=== PATIENT | female | born 1960 | race Caucasian/White ===

== ENCOUNTER 2017-02-18 14:14 | Inpatient (IN) | payer MEDICAID ==
[~2017-02-18] VITALS: Ht 177.8 cm; Wt 86.6 kg
[2017-02-18] VITALS (8 sets, daily range): BP systolic 142–205; BP diastolic 86–131; BMI 28.9
[~2017-02-18 14:14] MED LIST: ATIVAN1 MG PO; CARAFATE1 G/10 ML PO; DEPAKOTE500 MG PO; EFFEXOR75 MG PO; FLAGYL500 MG PO; KEFLEX500 MG PO; LISINOPRIL10 MG PO; NEURONTIN 300300 MG; NEXIUM20 MG PO; NEXIUM40 MG; NORCO 10/325 TA1 TA1 PO; PEPCID40 MG PO; PROTONIX40 MG PO; VENTOLIN HFA18 GM INH; ZANTAC300 MG PO
[2017-02-18 15:41] LABS: BASOPHILS 0.2 % (0-2); HEMATOCRIT 25.5 % (36.0-48.0); IMMATURE GRANULOCYTES 0.1 % (0-5); LYMPHOCYTES 9.8 % (15-50); MCHC 27.8 g/dL (31.0-37.0); MCV 69.7 fL (80.0-100.0); MEAN PLATELET VOLUME 9.3 fL (7.4-10.4); MONOCYTES 4.5 % (2-11); NEUTROPHILS 84.4 % (40-80); RBC 3.66 10x6/uL (4.00-5.40); RDW 17.8 % (11.5-14.5); WBC 12.2 10x3/uL (4.8-10.8)
[2017-02-18 15:53] LABS: MCH 19.4 pg (26.0-34.0); PLATELET COUNT 371 10x3/uL (130-400)
[2017-02-18 15:54] LABS: HEMOGLOBIN 7.1 g/dL (12-16)
[2017-02-18 15:56] LABS: APTT 30.8 SECONDS (22.8-39.4); INR 1.01 (0.85-1.17); PROTIME 13.1 SECONDS (11.6-15.0)
[2017-02-18 16:03] LABS: ALBUMIN 3.2 g/dL (3.4-5.0); ALKALINE PHOSPHATASE 101 U/L (46-116); ALT (SGPT) 27 U/L (10-68); BILIRUBIN - TOTAL 0.12 mg/dL (0.2-1.3); CALC OSMOLALITY 285 mosm/kg (275-300); CALCIUM 8.6 mg/dL (8.5-10.1); CARBON DIOXIDE 28.9 mmol/L (21.0-32.0); CHLORIDE - SERUM 105 mmol/L (98-107); CREATININE - SERUM 0.7 mg/dL (0.6-1.3); GLUCOSE 136 mg/dL (74-106); POTASSIUM - SERUM 4.1 mmol/L (3.5-5.1); PROTEIN - SERUM 6.4 g/dL (6.4-8.2); SODIUM 141 mmol/L (136-145); UREA NITROGEN 22 mg/dL (7-18); eGFR NON AFRICAN AMERICAN > 90 mL/min (90-120)
[2017-02-18 16:05] LABS: LIPASE 92 U/L (73-393)
[2017-02-18 16:06] LABS: TROPONIN-I < 0.017 ng/mL (0.000-0.060)
--- NOTE | 2017-02-18 18:41 | NUR ---
1839-REC'D TO ICU ALL CDP MONITORING APPLIED, HR 81, 177/92, GI LAB HERE.NGT TO LIS 500CC COFFEE GROUND EMESIS OUT, DR PURCELL HERE. DECISION MADE TO TAKE PT TO OR AND INTUBATE, PT TRANSFERED TO OR.
--- NOTE | 2017-02-18 20:00 | NUR ---
2000: Pt arrived from OR with OR team and Dr. Hemphill at bedside. Pt placed in room 2309 and all monitors and alarms connected/activated.
--- NOTE | 2017-02-18 20:15 | NUR ---
2015: Pt resting with eyes closed; open briefly to verbal, but does not follow commands. Pt with frequent coughing. Pt on vent with 7.0fr ETT and Vent with RR set 16 with pt RR 18-22x with SPO2 98%. Lungs with wheezes heard throughout LFs with ausiculation. MMP and no cyanosis noted. S1S2 regular SR 90's on CM with BP 170/100/ Pt reported with Epi injections in OR. Diprivan gtt started to left arm PIV for sedation. Pt placed in bilateral soft wrist restraints to prevent accidental extubation. SCDs placed. Ho to gravity with >30 cc/hr clear yellow UOP. Pt placed HOB 30 degrees at this time. No OGT/NGT per MD. ABD soft NT BS x4 active. Pt grimmaces with pain with palpation.
[2017-02-18 21:22] LABS: HEMATOCRIT 30.7 % (36.0-48.0); HEMOGLOBIN 8.8 g/dL (12-16)
--- NOTE | 2017-02-18 22:00 | NUR ---
2200: No change in RESP/CV/NV status at this time. Pt remains on Vent with RR 18-20x. Pt with frequent coughing. In-line sx produces small amount of thin clear sx return. Pt repostioned for comfort at this time.
--- NOTE | 2017-02-18 23:00 | NUR ---
2300: ABGs done and Vent FIO2 decreased to 60% at this time.
[2017-02-19] VITALS (23 sets, daily range): BP systolic 100–134; BP diastolic 59–87; Ht 177.8 cm; Wt 86.6 kg
--- NOTE | 2017-02-19 01:00 | NUR ---
0100: Pt thrashing in bed and pulling at tubes and lines. Increased sedation to keep SAS score as per order. Pt remains with Vent RR 20x (increased with lower sedation) with FIO2 60% and SPO2 98%. Oral care done per RT. Ho care done per RN.
--- NOTE | 2017-02-19 03:30 | NUR ---
0330: Pt thrashing in bed at times. Oral care done, Bath and linen change completed, SCD care done, and pt repositioned for comfort. Pt increased HR, BP, and RR with decreased sedation. Diprivan at 40 mcg/kg/min at this time.
[2017-02-19 05:04] LABS: BASOPHILS 0.1 % (0-2); EOSINOPHILS 0.1 % (0-7); HEMATOCRIT 25.3 % (36.0-48.0); IMMATURE GRANULOCYTES 0.3 % (0-5); LYMPHOCYTES 11.4 % (15-50); MCH 20.8 pg (26.0-34.0); MCHC 29.2 g/dL (31.0-37.0); MCV 71.1 fL (80.0-100.0); MEAN PLATELET VOLUME 9.1 fL (7.4-10.4); MONOCYTES 4.4 % (2-11); NEUTROPHILS 83.7 % (40-80); PLATELET COUNT 345 10x3/uL (130-400); RBC 3.56 10x6/uL (4.00-5.40); RDW 18.6 % (11.5-14.5)
[2017-02-19 05:06] LABS: HEMOGLOBIN 7.4 g/dL (12-16); INR 1.05 (0.85-1.17); PROTIME 13.5 SECONDS (11.6-15.0)
[2017-02-19 05:15] LABS: ALBUMIN 2.6 g/dL (3.4-5.0); ALKALINE PHOSPHATASE 79 U/L (46-116); ALT (SGPT) 21 U/L (10-68); AMYLASE - SERUM 9 U/L (25-115); CALC OSMOLALITY 284 mosm/kg (275-300); CALCIUM 7.7 mg/dL (8.5-10.1); CARBON DIOXIDE 24.8 mmol/L (21.0-32.0); CHLORIDE - SERUM 108 mmol/L (98-107); CHOL - HDL RATIO 2.1 ratio (2.3-4.1); CHOLESTEROL, TOTAL 114 mg/dL (0-200); CREATININE - SERUM 0.7 mg/dL (0.6-1.3); GLUCOSE 129 mg/dL (74-106); HDL CHOLESTEROL 55 mg/dL (32-96); LDL CHOLESTEROL 46 mg/dL (0-100); LDL-HDL RATIO 0.8 ratio (1.5-3.5); LIPASE 51 U/L (73-393); POTASSIUM - SERUM 3.5 mmol/L (3.5-5.1); PRE-ALBUMIN 13.6 mg/dL (18.0-35.7); PROTEIN - SERUM 5.7 g/dL (6.4-8.2); SODIUM 142 mmol/L (136-145); TRIGLYCERIDE 67 mg/dL (30-200); UREA NITROGEN 13 mg/dL (7-18); eGFR NON AFRICAN AMERICAN > 90 mL/min (90-120)
--- NOTE | 2017-02-19 05:59 | NUR ---
0600: Labs rec'd and Electrolyte protocol followed. KCL started to left arm proximal PIV at 10 MEQ/hr. (KCL 10 MEQ/100cc) Oral care done at this time. Pt increased RR, HR, and BP with stimulation. Pt thrashing in bed and kicking legs. Pt resumes resting position after stimulation removed. Continue to titrate Diprivan as per orders.
[2017-02-19 06:25] LABS: VALPROIC ACID (DEPAKOTE) 0.9 ug/mL (50.0-100.0)
--- NOTE | 2017-02-19 07:15 | NUR ---
REC'D REPORT AND RESUMED CARE, ETT TO VENTILATION AND SECURED, IN AC MODE WITH 60% FIO2, LEFT FA PIV WITH KCL 10MEQ INFUSING AT 100 CC/HR, LEFT HAND, NS WITH 100 CC/HR, PROTONIX AT 10 CC/HR, AND PROPOFAL AT 30 MCG, B/L SOFT WRIST RESTRAINTS IN USE AND SCD'S B/L, OPENS EYES TO SPEECH, DOES NOT FOLLOW COMMANDS, ASSESSMENT COMPLETED PER FLOWSHEET, REPOSITIONED WO RIGHT SIDE WITH PILLOW PROPPED TO BACK AND HEELS FLOATED
--- NOTE | 2017-02-19 09:00 | NUR ---
NO VISITORS AT THIS TIME
--- NOTE | 2017-02-19 09:30 | NUR ---
AM MEDS GIVEN WITHOUT DIFFICULTY, KCL 10 MEQ # 3/4 INITIATED
--- NOTE | 2017-02-19 10:30 | NUR ---
KCL 10 MEQ #4/4 INITIATED
--- NOTE | 2017-02-19 11:00 | NUR ---
DR LACY AT BEDSIDE FOR EVAL, SEDATION TITRATED TO 10 MCG/KG/MIN, VENT SETTINGS CHANGE TO SIMV MODE RATE OF 14, 600TV, 40% FIO2, PEEP OF 5/PS12, NO OTHER ACUTE CHANGE FROM PREVIOUS
--- NOTE | 2017-02-19 12:39 | NUR ---
UA AND UACUL COLLECTED PER PROTOCAL, LAB HERE FOR REPEAT K+ AND BLOOD CULTURE DRAW,
--- NOTE | 2017-02-19 12:50 | NUR ---
REPEAT K+ 3.9, NO INTERVENTION NEEDED AT THIS TIME
[2017-02-19 13:16] LABS: APPEARANCE CLEAR (CLEAR); BACTERIA FEW /hpf (NONE SEEN); BILIRUBIN NEGATIVE (NEGATIVE); COLOR YELLOW (YELLOW); EPITHELIAL CELLS 0-5 /hpf (0-5); GLUCOSE NEGATIVE (NEGATIVE); KETONE NEGATIVE (NEGATIVE); LEUKOCYTE ESTERASE TRACE (NEGATIVE); MUCUS <1+ /lpf (NONE SEEN); NITRITE NEGATIVE (NEGATIVE); PROTEIN NEGATIVE (NEGATIVE); RED CELLS - URINE 0-5 /hpf (0-5); SPECIFIC GRAVITY 1.015 (1.005-1.020); UROBILINOGEN NORMAL (NORMAL)
--- NOTE | 2017-02-19 13:21 | NUR ---
VENT ALARMING, TO ROOM, AGITATED, AND COUGHING, ORAL CARE AND SUCTION OF CLEAR SECRETIONS, REPOSITIONED UP AND TO BACK WITH HEELS FLOATED
--- NOTE | 2017-02-19 15:04 | NUR ---
ECHO CARDIOGRAM COMPLETED, CONTINUES ON VENT IN SIMV MODE, 40% FIO2, SAT 98%, VSS, PIPERCILLAN EXTENDED DOSE INITIATED, NO OTHER ACUTE CHANGES FROM PREVIOUS ASSESSMENTS
--- NOTE | 2017-02-19 15:07 | NUR ---
DR VASQUES HERE FOR EVAL, NEW ORDER GIVEN FOR 1 UNIT PRBC
--- NOTE | 2017-02-19 15:40 | NUR ---
PRBC INITIATED PER ORDER AND PROTOCAL, VSS, SEE FLOW SHEET,
--- NOTE | 2017-02-19 18:10 | NUR ---
PRBC COMPLETED, VSS, SEE FLOWSHEET, CBC ORDER FOR RE CHECK
--- NOTE | 2017-02-19 18:25 | NUR ---
VENT ALARMING, COUGHING, HITTING SIDE OF BED RAIL, ORAL CARE AND SUCTION COMPLETE, REPOSITIONED UP AND TO RIGHT SIDE WITH PILLOW PROPPED TO BACK,
--- NOTE | 2017-02-19 20:00 | NUR ---
2000: Pt remains sedated with diprivan as per orders and on vent with pt RR 18x with SPO2 95%. Crackles heard throughout LF. Oral care done with large amount of clear sx return. Pt remains with Protonix, NS, and Diprivan infusing to left arm PIVs.
[2017-02-19 20:15] LABS: BASOPHILS 0.2 % (0-2); EOSINOPHILS 1.2 % (0-7); HEMATOCRIT 26.6 % (36.0-48.0); HEMOGLOBIN 7.8 g/dL (12-16); IMMATURE GRANULOCYTES 0.4 % (0-5); LYMPHOCYTES 21.4 % (15-50); MCH 21.3 pg (26.0-34.0); MCHC 29.3 g/dL (31.0-37.0); MCV 72.5 fL (80.0-100.0); MEAN PLATELET VOLUME 9.2 fL (7.4-10.4); MONOCYTES 7.7 % (2-11); NEUTROPHILS 69.1 % (40-80); PLATELET COUNT 278 10x3/uL (130-400); RBC 3.67 10x6/uL (4.00-5.40); RDW 20.1 % (11.5-14.5)
[2017-02-19 20:17] LABS: WBC 10.4 10x3/uL (4.8-10.8)
[2017-02-19] MEDS ORDERED: LITHIUM CARBON300 MG PO (21:23)
[2017-02-19] MEDS ORDERED: ZYPREXA5 MG PO (21:23)
[2017-02-19] MEDS ORDERED: KLONOPIN1 MG PO (21:24)
--- NOTE | 2017-02-19 22:00 | NUR ---
2200: Pt repostioned for comfort with extrem off bed with pillow supports. SCD care, Ho care, and oral care completed at this time. Pt remains SR 70's on CM. No s/s of bleeding.
[2017-02-20] VITALS (24 sets, daily range): BP systolic 87–158; BP diastolic 46–90
--- NOTE | 2017-02-20 02:10 | NUR ---
0210: Pt aggitated in bed kicking legs and slapping side rails. Unable to orient patient. Pt continues behavior after all interventions attempted to calm and reassure pt. Pt RR 30x. Oral care done at this time per RN and Diprivan titrated as per orders.
--- NOTE | 2017-02-20 03:00 | NUR ---
0300: Pt continues thrashing in bed. Pt repositioned multiple times, oral care done, and continue to titrate diprivan as per orders. Pt has increased RR with aggitation.
[2017-02-20 03:46] LABS: BASOPHILS 0.4 % (0-2); EOSINOPHILS 1.5 % (0-7); HEMATOCRIT 27.8 % (36.0-48.0); HEMOGLOBIN 8.2 g/dL (12-16); IMMATURE GRANULOCYTES 0.1 % (0-5); LYMPHOCYTES 22.5 % (15-50); MCH 21.6 pg (26.0-34.0); MCHC 29.5 g/dL (31.0-37.0); MCV 73.4 fL (80.0-100.0); MEAN PLATELET VOLUME 9.2 fL (7.4-10.4); MONOCYTES 6.9 % (2-11); NEUTROPHILS 68.6 % (40-80); PLATELET COUNT 318 10x3/uL (130-400); RBC 3.79 10x6/uL (4.00-5.40); RDW 19.9 % (11.5-14.5); WBC 10.3 10x3/uL (4.8-10.8)
--- NOTE | 2017-02-20 04:00 | NUR ---
0400: Complete bath and linen change done at this time. Pt with eyes open, but does not follow any commands. Pt kicking at staff and thrashing head. MSO4 IV admin for pain and continue to titrate diprivan for sedation. Pt remains SR 70-80 on CM. No change in other IVF/UOP.
[2017-02-20 04:05] LABS: ALBUMIN 2.8 g/dL (3.4-5.0); ALKALINE PHOSPHATASE 81 U/L (46-116); ALT (SGPT) 20 U/L (10-68); CALCIUM 8.1 mg/dL (8.5-10.1); CARBON DIOXIDE 26.2 mmol/L (21.0-32.0); CHLORIDE - SERUM 110 mmol/L (98-107); CREATININE - SERUM 0.8 mg/dL (0.6-1.3); GLUCOSE 108 mg/dL (74-106); MAGNESIUM - SERUM 1.4 mg/dL (1.8-2.4); PHOSPHOROUS 3.2 mg/dL (2.5-4.9); POTASSIUM - SERUM 3.4 mmol/L (3.5-5.1); PRO BNP 2510 pg/mL (0-125); PROTEIN - SERUM 6.1 g/dL (6.4-8.2); SODIUM 144 mmol/L (136-145); TROPONIN-I 0.034 ng/mL (0.000-0.060); eGFR NON AFRICAN AMERICAN 78 mL/min (90-120)
[2017-02-20 04:06] LABS: CALC OSMOLALITY 285 mosm/kg (275-300); UREA NITROGEN 7 mg/dL (7-18)
--- NOTE | 2017-02-20 05:00 | NUR ---
0500: Pt resting at this time with eyes closed. BP decreased. Continue to titrate diprivan as per orders. Lab returned and electrolyte protocol followed.
[2017-02-20 12:32] LABS: MAGNESIUM - SERUM 2.3 mg/dL (1.8-2.4); POTASSIUM - SERUM 4.5 mmol/L (3.5-5.1)
--- NOTE | 2017-02-20 14:01 | NUR ---
SEDATED ON DIPRIVAN 50 MCG/KG/MIN.ON ARRIVAL. ADDITIONAL MORPHIN GIVEN TO KEEP PATIENT CALM. PATIENT WAS KICKING AT NURSES ON FLIGHT DYNAMICIST. ON VENT ETT SECURE BILATERAL LUNG SOUNDS EQUAL AND CLEAR. ABD SOFT WITH BOWEL SOUNDS X 4. IV LEFT FOREARM AND WRIST WITHOUT REDENSS OR SWELLING. NS INFUSING AT 100 ML HOUR. MONITOR SR. CARREON CATH PATENT DRAINING CLEAR YELLOW URINE. EXTUBATED AT 1315 TOLERATING WELL. ALERT ON 2 LITERS NC
--- NOTE | 2017-02-20 17:44 | NUR ---
TOLERATING PO FLUIDS WELL NO CHOKING OR COUGHING AFTER DRINKING WATER. RESTING WELL. CAN BE EMOTIONAL AT TIMES. RESP DEEP AND REGULAR.
--- NOTE | 2017-02-20 18:32 | NUR ---
PUDDING TAKEN PO WITHOUT CHOKING OR COUGHING. TOLERATED WELL. RESTING WELL TURNED SELF FROM SIDE TO SIDE. GOOD COUGH EFFORT
--- NOTE | 2017-02-20 19:00 | NUR ---
1900: Pt resting HOB 30 degrees with eyes open. Pt LOCx3 and follows all commands. Pt is able to move x4 extrem vs gravity. Pt c/o pain located in ABD and Head. Pt rates 10/10. Breathing 024LNC with RR20x w/ SPO2 97%. S1S2 regular SR on CM. ABD soft tender to palpation. Ho to gravity with >30 cc/hr clear yellow UOP. SR up cx2, call light in reach, bed in lowest position, and Bed alarm on/audible.
--- NOTE | 2017-02-20 20:00 | NUR ---
2000: Morphine IVP admin for pain control.
[2017-02-21] VITALS (25 sets, daily range): BP systolic 109–164; BP diastolic 61–90
--- NOTE | 2017-02-21 | NUR ---
0000: Pt respositoned for comfort at this time. Pt requested something for pain. Pt states she has pain in ABD and a "headache" pt rates pain 10/10. Pt remains 024LNC with RR18x with SPO2 94%. Encouraged DBC. Pt remains SR on CM.
--- NOTE | 2017-02-21 02:00 | NUR ---
0200: Pt c/o chest pain. Pt indicates midline chest and rates 10/10. EKG done at this time. CE's done as well. No changes are seen on EKG at this time and pt remains SR 80's. Pt SPO2 is decreased 88-90%. Rt in room at bedside. ABG done at this time. Encouraged DBC and pt repositioned HOB 40 degrees midline.
[2017-02-21 02:35] LABS: BASOPHILS 0.2 % (0-2); EOSINOPHILS 2.2 % (0-7); HEMATOCRIT 28.4 % (36.0-48.0); HEMOGLOBIN 8.4 g/dL (12-16); IMMATURE GRANULOCYTES 0.4 % (0-5); LYMPHOCYTES 17.1 % (15-50); MCH 21.8 pg (26.0-34.0); MCHC 29.6 g/dL (31.0-37.0); MCV 73.6 fL (80.0-100.0); MEAN PLATELET VOLUME 9.6 fL (7.4-10.4); MONOCYTES 5.7 % (2-11); NEUTROPHILS 74.4 % (40-80); PLATELET COUNT 162 10x3/uL (130-400); RBC 3.86 10x6/uL (4.00-5.40); RDW 20.3 % (11.5-14.5); WBC 10.6 10x3/uL (4.8-10.8)
[2017-02-21 02:54] LABS: ALBUMIN 2.9 g/dL (3.4-5.0); ALKALINE PHOSPHATASE 80 U/L (46-116); ALT (SGPT) 19 U/L (10-68); BILIRUBIN - TOTAL 0.35 mg/dL (0.2-1.3); CALCIUM 8.2 mg/dL (8.5-10.1); CARBON DIOXIDE 24.1 mmol/L (21.0-32.0); CHLORIDE - SERUM 106 mmol/L (98-107); CREATININE - SERUM 0.7 mg/dL (0.6-1.3); GLUCOSE 111 mg/dL (74-106); PROTEIN - SERUM 6.3 g/dL (6.4-8.2); SODIUM 140 mmol/L (136-145); eGFR NON AFRICAN AMERICAN > 90 mL/min (90-120)
[2017-02-21 02:56] LABS: CALC OSMOLALITY 276 mosm/kg (275-300); POTASSIUM - SERUM 3.8 mmol/L (3.5-5.1); UREA NITROGEN 5 mg/dL (7-18)
--- NOTE | 2017-02-21 03:00 | NUR ---
0300: Pt SPO2 decreased 88% Pt resting with eyes closed. Awake to light stimulatin and begins crying and stating her chest is hurting. Oximizer placed at 6L at this time.
[2017-02-21 03:03] LABS: CKMB 0.6 U/L (0.0-3.6); CREATINE KINASE 56 UL (21-215)
[2017-02-21 03:04] LABS: TROPONIN-I < 0.017 ng/mL (0.000-0.060)
--- NOTE | 2017-02-21 03:50 | NUR ---
0350: Pt resting with eyes closed at this time. SPO2 94% Pt remains SR 70-80 on CM.
--- NOTE | 2017-02-21 06:00 | NUR ---
0600: Pt resting with eyes closed at this time. Pt remains on Oximizer and weaning FIO2 to keep SPO2 >92% at this time. Oxomizer at 7L with SPO2 96% at this time. Pt remains SR on CM.
--- NOTE | 2017-02-21 09:10 | NUR ---
COMPLIANTS OF TIGHTNESS IN CHEST, STATES SHE DOES HAVE A HISTORY OF ANXIETY ATTACKS BUT THIS IS NOT IT. MORPHINE 4 IV GIVEN. DOES NOT WANT TO SIT UP IN CHAIR, WANTS TO LAY DOWN IN BED. ENCOURAGED TO COUGH AND DEEP BREATH FOR LUNG CONGESTION. CLEAR SPUTUM. KEEPS EYES CLOSED EXCEPT WHEN ASKED TO OPEN THEM.
--- NOTE | 2017-02-21 12:41 | NUR ---
ORDERS RECIEVED FROM DR. VASQUES TO GIVE 2 UNITS OF BLOOD AND GIVE 20 MG LASIX BETWEEN UNITS. FIRST STARTED WITHOUT REACTION. PATIENT SLEEPING ON PO MEDS. JELLO AND JUICE TAKEN WITHOUT NAUSEA.
--- NOTE | 2017-02-21 18:22 | NUR ---
CONITNUES TO COMPLAINT OF CHEST PAIN STABBING THEN TIGHTNESS. NO CHANGE IN VITAL SIGNS OR EKG. DR. VASQUES NOTIFIED OF NEW FOR RENEWAL OR NEW PAIN MED, ORDER FOR DEMEROL 25 MG IV Q 4 HOURS PRN RECEIVED. AND GIVEN TO PATIENT REPOSITION ON RIGHT SIDE. SLEEPING AFTER MEDS GIVEN CLEAR LIQUID DIET TAKEN WELL. GOOD COUGH CLEAR SPUTUM. LASIX 20 MG GIVEN BETWEEN UNITS OF BLOOD. GOOD RESPONSE TO LASIX. 2 UNITS OF BLOOD GIVEN WITHOUT REACTION. TEMP MOST OF THE DAY. BATH WITH LINEN CHANGE D ONE. TOLERATED WELL
--- NOTE | 2017-02-21 20:25 | NUR ---
PT RESTING IN BED. PROVIDED EXTRA BLANKET AND WATER. REPOSITIONED FOR COMFORT. RATES PAIN 10/10, STATES IT IS RELIEVED BY REST. BED IN LOWEST POSITION, CALL LIGHT IN REACH. PT SLEEPING.
--- NOTE | 2017-02-21 22:25 | NUR ---
PT SLEEPING. CALL LIGHT IN REACH. BED IN LOWEST POSITION. VSS. WILL CONTINUE TO MONITOR.
[2017-02-22] VITALS (13 sets, daily range): BP systolic 105–148; BP diastolic 53–77
--- NOTE | 2017-02-22 | NUR ---
PT SLEEPING. WOKE HER UP TO ASSESS HER PAIN. SHE STATES IT IS AT A 0/10. CALL LIGHT IN REACH. BED IN LOWEST POSITON. WILL CONTINUE TO MONITOR.
--- NOTE | 2017-02-22 02:00 | NUR ---
PT SLEEPING. READJUSTED HER OXIMIZER. CALL LIGHT IN REACH. WILL CONTINUE TO MONITOR.
--- NOTE | 2017-02-22 03:34 | NUR ---
REASSESSMENT DONE. NO CHANGES NOTED. SEE FLOWSHEET. PT RESTING PEACEFULLY. WILL CONTINUE TO MONITOR.
[2017-02-22 03:45] LABS: BASOPHILS 0.3 % (0-2); HEMATOCRIT 32.4 % (36.0-48.0); IMMATURE GRANULOCYTES 0.2 % (0-5); LYMPHOCYTES 19.7 % (15-50); MCHC 30.9 g/dL (31.0-37.0); MCV 74.7 fL (80.0-100.0); MONOCYTES 12.7 % (2-11); NEUTROPHILS 65.1 % (40-80); RBC 4.34 10x6/uL (4.00-5.40); RDW 20.9 % (11.5-14.5); WBC 8.9 10x3/uL (4.8-10.8)
[2017-02-22 03:46] LABS: PLATELET COUNT 294 10x3/uL (130-400)
[2017-02-22 03:58] LABS: ALBUMIN 2.7 g/dL (3.4-5.0); ALKALINE PHOSPHATASE 76 U/L (46-116); ALT (SGPT) 16 U/L (10-68); BILIRUBIN - TOTAL 0.55 mg/dL (0.2-1.3); CALC OSMOLALITY 281 mosm/kg (275-300); CALCIUM 8.6 mg/dL (8.5-10.1); CHLORIDE - SERUM 103 mmol/L (98-107); CREATININE - SERUM 0.6 mg/dL (0.6-1.3); GLUCOSE 117 mg/dL (74-106); PROTEIN - SERUM 6.6 g/dL (6.4-8.2); SODIUM 142 mmol/L (136-145); TROPONIN-I 0.017 ng/mL (0.000-0.060); UREA NITROGEN 6 mg/dL (7-18); eGFR NON AFRICAN AMERICAN > 90 mL/min (90-120)
[2017-02-22 04:01] LABS: CARBON DIOXIDE 30.5 mmol/L (21.0-32.0); POTASSIUM - SERUM 3.2 mmol/L (3.5-5.1)
--- NOTE | 2017-02-22 05:00 | NUR ---
CARREON CARE COMPLETED. REPOSITIONED FOR COMFORT. BED IN LOWEST POSITION. NO FURTHER REQUESTS. WILL CONTINUE TO MONITOR.
--- NOTE | 2017-02-22 07:00 | NUR ---
PT RESTING AT THIS TIME BUT AROUSES TO VOICE. NORMAL SINUS ON MONITOR. NO EVIDENCE OF PAIN AT THIS TIME. PT ABLE TO TURN SELF IN BED INDEPENDENTLY. ELECTROLYTES REPLACED PER CRAB MEAT PROCESSOR. SHIFT ASSESSMENT COMPLETED PER FLOWSHEET. WILL CONTINUE TO MONITOR PT CLOSELY. VITAL SIGNS STABLE
--- NOTE | 2017-02-22 09:00 | NUR ---
PT TEARFUL AT THIS TIME. DENIES PAIN BUT STATES SHE IS UPSET AND TIRED OF BEING IN THE HOSPITAL. ATTEMPTED TO HELP PT MOOD. GIVEN MORNING MEDS. WILL CONTINUE TO MONITOR
--- NOTE | 2017-02-22 10:30 | NUR ---
DISCUSSED RESP STATUS WITH RT. PT O2 SAT STABLE. TAKEN OFF OXYMIZER AND NOW ON 2L NC WITH O2 SAT 95-100%. WILL MONITOR CLOSELY FOR CHANGES
--- NOTE | 2017-02-22 10:40 | NUR ---
Nutrition Follow Up: Diet advanced to clear liquid. I<O. No BM. Wt loss since admit noted. Meds and labs reviewed. Rec continue advancing diet as tolerated as medically feasible. RD will continue to monitor pt progress.
--- NOTE | 2017-02-22 12:30 | NUR ---
PT SITTING UP IN BED EATING CLEAR LIQUID TRAY INDEPENDENTLY. DENIES PAIN AND MOOD HAS IMPROVED FROM THIS MORNING. WILL CONTINUE TO MONITOR PT FOR CHANGES. TRANSFER ORDERS IN COMPUTER. WILL TRANSFER WHEN GIVEN A ROOM.
--- NOTE | 2017-02-22 16:50 | NUR ---
RECEIVED PATIENT VIA BED FROM ICU TO ROOM 2230. PATIENT IS WAKE, ALERT, AND ORIENTED X4. ORIENTED PATIENT TO HER NEW ROOM. CALL LIGHT PLACED IN PATIENT'S REACH. IV SITE PATENT WITHOUT ANY S/S OF INFECTION NOTED IN PATIENT'S LEFT FOREARM. PATIENT DENIES ANY NEEDS AT PRESENT TIME. WILL MONITOR PATIENT.
--- NOTE | 2017-02-22 16:50 | NUR ---
PT TRANSFER TO MED/SURG VIA BED WITH BELONGINGS AT BEDSIDE ON 2L NC. REPORT CALLED TO ERNIE RICKS. PT SET UP IN ROOM WITH DINNER TRAY AND CALL LIGHT WITHIN REACH.
--- NOTE | 2017-02-22 18:00 | NUR ---
PATIENT RESTING IN THE BED. PATIENT REQUESTING A "CHOCOLATE PUDDING", BUT PATIENT IS ON A CLEAR LIQUID DIET. JELLO PROVIDED TO PATIENT. CALL LIGHT IN PATIENT'S REACH. WILL MONITOR PATIENT.
--- NOTE | 2017-02-22 21:25 | NUR ---
PATIENT RESTING IN BED. ALERT AND ORIENTED. NO SIGNS OF DISTRESS NOTED. SCHEDULED MEDS GIVEN. SHIFT ASSESSMENT COMPLETED. JELLO GIVEN AT PATIENT REQUEST. DENIES ANY OTHER NEEDS AT THIS TIME. BED LOW. CALL LIGHT IN REACH
[2017-02-23] VITALS: BP 122/67
[2017-02-23 04:00] VITALS: BP 120/66
[2017-02-23 05:52] LABS: BASOPHILS 0.3 % (0-2); EOSINOPHILS 2.9 % (0-7); HEMATOCRIT 32.9 % (36.0-48.0); HEMOGLOBIN 9.9 g/dL (12-16); IMMATURE GRANULOCYTES 0.2 % (0-5); LYMPHOCYTES 18.9 % (15-50); MCH 22.8 pg (26.0-34.0); MCHC 30.1 g/dL (31.0-37.0); MCV 75.8 fL (80.0-100.0); MEAN PLATELET VOLUME 9.3 fL (7.4-10.4); MONOCYTES 11.1 % (2-11); NEUTROPHILS 66.6 % (40-80); PLATELET COUNT 305 10x3/uL (130-400); RBC 4.34 10x6/uL (4.00-5.40); RDW 21.8 % (11.5-14.5)
[2017-02-23 06:19] LABS: ALBUMIN 2.6 g/dL (3.4-5.0); ALKALINE PHOSPHATASE 73 U/L (46-116); ALT (SGPT) 16 U/L (10-68); BILIRUBIN - TOTAL 0.36 mg/dL (0.2-1.3); CALC OSMOLALITY 281 mosm/kg (275-300); CALCIUM 8.7 mg/dL (8.5-10.1); CHLORIDE - SERUM 105 mmol/L (98-107); CREATININE - SERUM 0.6 mg/dL (0.6-1.3); GLUCOSE 130 mg/dL (74-106); POTASSIUM - SERUM 3.3 mmol/L (3.5-5.1); PROTEIN - SERUM 6.5 g/dL (6.4-8.2); SODIUM 142 mmol/L (136-145); eGFR NON AFRICAN AMERICAN > 90 mL/min (90-120)
[2017-02-23 06:20] LABS: UREA NITROGEN 4 mg/dL (7-18)
[2017-02-23 08:16] VITALS: BP 133/85
--- NOTE | 2017-02-23 08:31 | NUR ---
PT AWAKE AND ALERT HOWEVER IS VERY ANGRY ABOUT BEING HERE WANTS TO GO HOME PIV NOTED TO BE INFILTRATED. REDNESS AND TENDERNESS NOTED TO LEFT FORARM. PT CALL LIGHT IN REACH SIDE RAILS UP X 2
[2017-02-23 10:37] LABS: VANCOMYCIN - TROUGH 11.8 ug/mL (10.0-20.0)
[2017-02-23 10:38] LABS: POTASSIUM - SERUM 3.9 mmol/L (3.5-5.1)
--- NOTE | 2017-02-23 11:00 | NUR ---
PATIENT OUT OF HER ROOM, FOUND PATIENT IN THE HALLWAY WALKING BACK TO ROOM. I STATED "WHERE DID YOU GO?" SHE STATED "I HAD TO GO DOWN TO THE OFFICE TO GET MY THINGS." PATIENT HOLDING A BAG. ASSESSED LEVEL OF ORIENTATION, PATIENT ANSWERED ALL QUESTIONS APPROPRIATELY. PATIENT STATED "I AM LEAVING AT 1 O'CLOCK I DO NOT CARE IF MY PAPERS OR READY OR NOT I HAVE SOMEWHERE TO BE. I CAN COME BACK AND SIGN MY PAPERS." I STATED "IF YOU CHOOSE TO LEAVE WITHOUT DISCHARGE PAPERS WE NEED YOU TO LET US KNOW, SO THAT WE CAN BRING YOU A FORM TO SIGN." PATIENT STATED "A FORM SAYING THAT I AM LEAVING AGAINST MEDICAL ADVICE? SO THAT MEDICAID WILL NOT PAY, I DON'T THINK SO. I WILL NOT SIGN IT. AND I WILL BE LEAVING AT 1. WITH OR WITHOUT PAPERS." TOLD LUANNE TAVERA ABOUT OUR CONVERSATION.
--- NOTE | 2017-02-23 11:00 | NUR ---
PT PULLED CARREON CATHETER OUT BULB INTACT LEFT UNIT AMBULATING UNASSISTED AND WITHOUT INFORMING STAFF SHE WAS LEAVING SECURITY CALLED TO FIND PT PT FOUND 5 MIN LATER COMING BACK FROM ADMISSIONS AND STATES I JUST NEEDED MY STUFF FROM LOCK UP CAUSE IM LEAVING AT 1 PM WHETHER ANYONE LIKES IT OR NOT. NOTIFIED CORRECTIONAL SERGEANT ON UNIT
--- NOTE | 2017-02-23 11:24 | NUR ---
Patient Name: SHANA WYATT Admission Status: ER Accout number: [id number] Admission Date: 02-18-2017 : 1960 Admission Diagnosis:GASTROINTESTINAL HEMORRHAGE, UNSPECIFIED Attending: CAPRICE Current LOS: 5 Anticipated DC Date: 02-26-2017 Planned Disposition: Home Primary Insurance: MEDICAID [place] Discharge Planning Comments: CM MET WITH PATIENT REGARDING D/C NEEDS AND PLANS. PATIENT STATED SHE LIVES ALONE AND HER FRIEND SHELLIE WILL DRIVE HER HOME AT DISCHARGE. PATIENT HAS NO STEPS OR STAIRS AT HOME AND STATED IT WAS SAFE. PATIENT IS INDEPENDENT WITH HER CARE AND HAS NO DME AT HOME. PATIENTS PCP IS DR. VILLEDA AND PHARMACY IS [facility]. ON [address]. PATIENT STATED SHE DOES NOT WANT HOME HEALTH AND HAD NO OTHER NEEDS FOR DISCHARGE. CM WILL CONTINUE TO FOLLOW PATIENT WITH D/C NEEDS AND PLANS. PCP DR. RONAL [facility]. [address]- [phone] SHELLIE (FRIEND) [phone] Beadworker: Lakshmi Irizarry Is the patient Alert and Oriented? Yes 0 * How many steps to enter\exit or inside your home? 0 0 * PCP DR. VILLEDA 0 * Pharmacy [facility] ON [address] 0 * Preadmission Environment Home Alone 0 * ADLs Independent 0 * Equipment None 0 * List name and contact numbers for known caregivers / representatives who currently or will assist patient after discharge: SHELLIE (FRIEND) [phone] 0 * Community resources currently utilized None 0 * Additional services required to return to the preadmission environment? Yes 0 * Can the patient safely return to the preadmission environment? Yes 0 * Has this patient been hospitalized within the prior 30 days at any hospital? No 0 Grand Total: 0
[2017-02-23 11:48] VITALS: BP 167/99
--- NOTE | 2017-02-23 13:38 | EC ---
PATIENT:SHANA WYATT DATE OF SERVICE: 02/18/17 SEX: F MEDICAL RECORD: [id number] DATE OF : 56 LOCATION:D.[facility] AGE OF PATIENT: 56 ADMISSION DATE: 02/18/17 REFERRING PHYSICIAN: INTERPRETING PHYSICIAN: PARDEEP ZAPIEN MD ECHOCARDIOGRAM REPORT ECHO CHARGES 4 ECHO COMPLETE CLINICAL DIAGNOSIS: SOB ECHOCARDIOGRAPHIC MEASUREMENTS (adult normal given) AC root (d.<3.7cm) 3.9 LV Septum d (<1.2 cm> 1.3 Valve Excursion 1.3 LV Septum (systole) 1.8 Left Atria (s.<4.0cm> 3.9 LVPW d(<1.2cm) 1.4 RV (d.<2.3cm) 2.7 LVPW (sytole) 1.8 LV diastole(<5.6CM) 6.1 MV E-F(>70mm/sec) LV systole 4.6 LVOT Diameter 2.0 MV exc.(>10mm) Est.ejection fraction (50-75%) Pericardial Effusion N DOPPLER: LVIT A 96.0 E 53.0 LA RVSP 33.0 LVOT 127 AOP1/2T Asc. Ao 173 RVOT 66.0 RA PA 94.0 AV Gradient Peak 12.0 AV Mean 6.4 AV Area 2.2 MV Gradient Peak 5.9 MV Mean 1.9 MV Area COMMENTS: Oil Painter: Chilango ELLISOE Mobile Marketing Manager:Krystian Degroot TAPE# PACS DATE OF SERVICE: 02/19/2017 Adequate 2D echo, color flow, spectral Doppler, and M-mode. Borderline LVH. LV internal dimension is normal. Wall motion is normal. EF is greater than 55%. Aortic valve sclerosis without stenosis by Doppler interrogation. The left atrium is normal at 3.9 cm. Mitral valve shows no prolapse. [id number] MR. Right-sided chamber is grossly normal. Mild TR. TRANSINT:[id number] Voice Confirmation ID: [id number] DOCUMENT ID: [id number] 02/23/2017 Edited to correct date of service, dmm. ECHOCARDIOGRAM REPORT [id number] SHANA WYATT PARDEEP ZAPIEN MD at 7961 CC: [id number] DICTATION DATE: 02/21/17 0935 [address] LIMOUSINE: 02/21/17 1249 ADM IN [facility] [address] [id number]
--- NOTE | 2017-02-23 14:06 | NUR ---
CM note: Cab was called to take patient to [address] pt escorted out via wheelchair
--- NOTE | 2017-02-23 14:19 | NUR ---
PT DISCHARGED AT THIS TIME PER ORDER. PT EXPRESSED UNDERSTANDING OF DISCHARGE INSTRUCTIONS AND FOLLOW UP APPOINTMENTS. NO ACUTE DISTESSS NOTED LEFT VIA WHEELCHAIR TO [facility].
== END 2017-02-23 14:20 | disposition home or self-care (01) | DRG 377 ==
LOC: D.ER 14:14 → D.MS 16:04 → D.ICU 16:04 → D.MS 02-22 17:00
PROVIDERS: Emergency Medicine; Internal Medicine Gastroenterology; Internal Medicine Pulmonary Disease; ADMIT Family Medicine
PROC: 3E0G8GC Introduction of Other Therapeutic Substance into Upper GI, Via Natural or Artificial Opening Endoscopic (ICD-10-PCS; 2017-02-18)
PROC: 0DJ08ZZ Inspection of Upper Intestinal Tract, Via Natural or Artificial Opening Endoscopic (ICD-10-PCS; 2017-02-18)
PROC: 0BH17EZ Insertion of Endotracheal Airway into Trachea, Via Natural or Artificial Opening (ICD-10-PCS; 2017-02-18)
PROC: 5A1945Z Respiratory Ventilation, 24-96 Consecutive Hours (ICD-10-PCS; 2017-02-18)
PROC: 0T9B70Z Drainage of Bladder with Drainage Device, Via Natural or Artificial Opening (ICD-10-PCS; principal; 2017-02-18 19:00)
PROC: 0D9670Z Drainage of Stomach with Drainage Device, Via Natural or Artificial Opening (ICD-10-PCS; principal; 2017-02-18 19:00)
DX: K92.2 Gastrointestinal hemorrhage, unspecified (principal); J96.00 Acute respiratory failure, unspecified whether with hypoxia or hypercapnia; B19.10 Unspecified viral hepatitis B without hepatic coma; D62 Acute posthemorrhagic anemia; K44.9 Diaphragmatic hernia without obstruction or gangrene; K29.70 Gastritis, unspecified, without bleeding; K29.80 Duodenitis without bleeding; Z72.0 Tobacco use; I10 Essential (primary) hypertension; J44.9 Chronic obstructive pulmonary disease, unspecified; H26.9 Unspecified cataract; F90.9 Attention-deficit hyperactivity disorder, unspecified type; F41.9 Anxiety disorder, unspecified; F31.9 Bipolar disorder, unspecified; F43.10 Post-traumatic stress disorder, unspecified; B19.20 Unspecified viral hepatitis C without hepatic coma

== ENCOUNTER 2017-11-25 09:20 | Day surgery (SDC) | payer MEDICAID ==
[2017-11-24 08:53] LABS: HEMATOCRIT 34.6 % (36.0-48.0); HEMOGLOBIN 10.5 g/dL (12-16); MCH 21.6 pg (26.0-34.0); MCHC 30.3 g/dL (31.0-37.0); MEAN PLATELET VOLUME 8.5 fL (7.4-10.4); RBC 4.87 10x6/uL (4.00-5.40); RDW 16.2 % (11.5-14.5); WBC 8.8 10x3/uL (4.8-10.8)
[2017-11-24 09:11] LABS: ANION GAP 12.8 mmol/L (8-16); BILIRUBIN - TOTAL 0.31 mg/dL (0.2-1.3); CALCIUM 10.1 mg/dL (8.5-10.1); CARBON DIOXIDE 29.7 mmol/L (21.0-32.0); CREATININE - SERUM 1.2 mg/dL (0.6-1.3); POTASSIUM - SERUM 4.5 mmol/L (3.5-5.1); PROTEIN - SERUM 8.4 g/dL (6.4-8.2)
[2017-11-24 09:14] LABS: APTT 30.1 SECONDS (22.8-39.4); INR 0.99 (0.85-1.17); PROTIME 12.7 SECONDS (11.6-15.0)
--- NOTE | ~2017-11-25 | OP ---
PATIENT NAME: SHANA WYATT MEDICAL RECORD: [id number] :56 LOCATION:D.OPS ADMISSION DATE: SURGEON: SHAUN BREEN MD DATE OF OPERATION: 11/25/2017 PREOPERATIVE DIAGNOSES: 1. 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 2. Lamb's neuroma, second and third webspace of the right foot. POSTOPERATIVE DIAGNOSES: 1. 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 2. Lamb's neuroma, second and third webspace of the right foot. PROCEDURE: 1. Excision of Lamb's neuroma, first and second webspace. 2. Excision of Lamb's neuroma, second and third webspace, right foot. SURGEON: Shaun Breen MD ANESTHESIA: General. INTRAOPERATIVE COMPLICATIONS: None. SUMMARY OF PATHOLOGIC FINDINGS: The patient had indeed it was found to have Lamb's neuromas as predicted from preoperative examination. OPERATIVE SUMMARY IN DETAIL: After obtaining the appropriate preoperative orthopedic surgery consent as well as anesthetic consultation, evaluation and clearance, the patient was brought to the operating room and placed on the operating table in supine position. After adequate general TIVA anesthesia had been administered, the right lower extremity was prepped and draped in routine sterile fashion. Tourniquet was placed just proximal to the malleoli. The foot was elevated and exsanguinated, tourniquet was inflated to 250 mmHg. An incision was made between the first and second metatarsal heads and about the MTP joint. Dissection was then carried gently down. The lamina glass or mirror inspector was then used to get down to the transverse metatarsal ligament. Small incisions were made here and neuroma was very clear and evident. It was excised. Attention was then turned to the second and third webspace. Again, incision was made between the second and third webspace. Dissection was carried gently down to the level of transverse metatarsal ligament. Again, incision was made into the transverse metatarsal ligament and Lamb's neuroma was immediately found, it was also excised. Both incisions were copiously irrigated and closed with 2-0 Vicryl followed by 4-0 Prolene. Sterile dressings were applied. The patient was awakened, taken to recovery in stable condition. All final needle and sponge counts were correct. TRANSINT:[id number] Voice Confirmation ID: [id number] DOCUMENT ID: [id number] OPERATIVE REPORT [id number] SHANA WYATT MD, SHAUN ARVIZU at 1503 CC: [id number] DICTATION DATE: 11/25/17 1311 CLEANING SUPERVISOR: 11/25/17 135[id number] [place] [address]
[~2017-11-25 09:20] MED LIST changes: +CIMETIDINE200 MG PO; +KLONOPIN1 MG PO; +LITHIUM CARBON300 MG PO; +MIRAPEX1 MG PO; +MYRBETRIQ50 MG PO; +ULTRAM50 MG PO; +ZYPREXA5 MG PO
[2017-11-25 10:04] VITALS: BP 164/87; BMI 26.8
[2017-11-25] MEDS ORDERED: HYDROCODONE-APA1 TAB PO (13:15)
== END 2017-11-25 15:30 | disposition home or self-care (01) ==
LOC: D.OPS 09:20 → D.PAN 11:30 → D.OPS 11:30 → D.PAN 12:25 → D.OPS 12:25 → D.PAN 13:45 → D.OPS 13:45
PROVIDERS: Anesthesiology
DX: G57.61 Lesion of plantar nerve, right lower limb (principal); M17.12 Unilateral primary osteoarthritis, left knee; F17.200 Nicotine dependence, unspecified, uncomplicated; I10 Essential (primary) hypertension; J44.9 Chronic obstructive pulmonary disease, unspecified; K21.9 Gastro-esophageal reflux disease without esophagitis; B19.20 Unspecified viral hepatitis C without hepatic coma; Z01.812 Encounter for preprocedural laboratory examination

== ENCOUNTER → 2018-07-21 10:02 | Day surgery (SDC) | payer MEDICAID ==
[~2018-07-21] VITALS: Ht 177.8 cm; Wt 81.6 kg
--- NOTE | ~2018-07-21 | OP ---
PATIENT NAME: SHANA WYATT MEDICAL RECORD: [id number] :56 LOCATION:D.OPS ADMISSION DATE: SURGEON: SHAUN BEREN MD DATE OF OPERATION: 07/21/2018 PREOPERATIVE DIAGNOSIS: Lamb's neuroma between the first and second metatarsal head and the second and third metatarsal heads. POSTOPERATIVE DIAGNOSIS: Lamb's neuroma between the first and second metatarsal heads and the second and third metatarsal heads. PROCEDURE: Excision of Lamb's neuroma, the first interspace and second interspace. SURGEON: Shaun Breen MD ANESTHESIA: General. INTRAOPERATIVE COMPLICATIONS: None. 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 The patient is well known to have neuromas. She had a similar situation on the contralateral foot with good results for Lamb's neuroma excision. OPERATIVE SUMMARY IN DETAIL: After obtaining the appropriate preoperative orthopedic surgery consent as well as anesthetic consultation, evaluation, and clearance, the patient was brought to the operating room and placed on the operating table in supine position. After general laryngeal mask airway was administered, tourniquet was placed about the proximal aspect of the right lower extremity. Right lower extremity was then prepped and draped in routine sterile fashion. The leg was elevated and exsanguinated, tourniquet was inflated to 350 mmHg. An incision was made first between the first and second metatarsal. It was gently taken down to the level of the transverse metatarsal ligament. This was gently incised and the neuroma was found in the appropriate position. It was excised in its entirety. Having completed this, this wound was irrigated. Attention was then turned to the neuroma between second and third toe. Incision was again made somewhat more lateral to avoid devascularization. This was then taken down again and the transverse metatarsal ligament was incised again findings were a neuroma that was in the appropriate position. This was excised in its entirety, both wounds were then irrigated and closed with 4-0 Prolene in interrupted fashion. Sterile dressings were applied. Tourniquet was deflated. The patient was awakened, taken to recovery room in stable condition. All final needle and sponge counts were correct. TRANSINT:[id number] Voice Confirmation ID: [id number] DOCUMENT ID: [id number] OPERATIVE REPORT [id number] SHANA WYATT MD, SHAUN ARVIZU at 0844 CC: [id number] DICTATION DATE: 07/22/18 1301 FAST FOOD RESTAURANT MANAGER: 07/22/18 1333 [facility] [place] 07/21/18 [id number] [id number]
[~2018-07-21 10:02] MED LIST changes: +HYDROCODONE-APA1 TAB PO; +NORCO 10-325 TA1 TAB PO
[2018-07-21 10:36] LABS: HEMATOCRIT 35.6 % (36.0-48.0); HEMOGLOBIN 10.9 g/dL (12-16); MCH 22.8 pg (26.0-34.0); MCHC 30.6 g/dL (31.0-37.0); MCV 74.3 fL (80.0-100.0); MEAN PLATELET VOLUME 9.5 fL (7.4-10.4); RBC 4.79 10x6/uL (4.00-5.40); RDW 18.9 % (11.5-14.5); WBC 5.8 10x3/uL (4.8-10.8)
[2018-07-21 10:39] LABS: ALBUMIN 3.7 g/dL (3.4-5.0); ALKALINE PHOSPHATASE 105 U/L (46-116); ALT (SGPT) 21 U/L (10-68); BILIRUBIN - TOTAL 0.24 mg/dL (0.2-1.3); CALC OSMOLALITY 284 mosm/kg (275-300); CALCIUM 8.9 mg/dL (8.5-10.1); CARBON DIOXIDE 26.5 mmol/L (21.0-32.0); CHLORIDE - SERUM 104 mmol/L (98-107); CREATININE - SERUM 0.8 mg/dL (0.6-1.3); GLUCOSE 101 mg/dL (74-106); POTASSIUM - SERUM 4.5 mmol/L (3.5-5.1); PROTEIN - SERUM 7.6 g/dL (6.4-8.2); SODIUM 140 mmol/L (136-145); UREA NITROGEN 30 mg/dL (7-18); eGFR NON AFRICAN AMERICAN 78 mL/min (90-120)
[2018-07-21 10:40] LABS: APTT 30.4 SECONDS (22.8-39.4); INR 0.97 (0.85-1.17); PROTIME 12.5 SECONDS (11.6-15.0)
[2018-07-21 13:30] VITALS: BP 130/71; Ht 177.8 cm; Wt 81.6 kg
== END | disposition home or self-care (01) ==
LOC: D.PAN 10:00 → D.OPS 10:02 → D.PAN 15:05 → D.OPS 17:30 → D.PAN 17:30
PROVIDERS: Anesthesiology
DX: G57.61 Lesion of plantar nerve, right lower limb (principal)